=== PATIENT | female | born 1965 | race Caucasian/White ===

== ENCOUNTER → 2023-06-03 09:03 | Outpatient (BNVA) | payer OTHER, SELFPAY | PROVIDERS: PCP Internal Medicine; Visit Provider Physician Assistant Surgical ==

== ENCOUNTER 2023-07-08 08:51 | Outpatient (AMB) | payer OTHER, SELFPAY ==
--- NOTE | 2023-07-07 20:06 | A.OFFVIS_ITS ---
Intake VS Expanded 07/07/23 20:12 Height 4 ft 8 in Weight 217 lb BMI 48.6 Body Fat % 50.2 Body Fat Mass 108 Visceral Fat Rating 19 Body Water % 76.8 Basal Metabolic Rate/Score 1,548 Intake Visit Reasons: [employer] BMI 48.7 SWL Allergies No Known Allergies Allergy (Verified 07/08/23 10:56) Medication List - Last Reconciled 07/08/23 by Francisco Espinoza MD No Known Home Meds HPI [employer] BMI 48.7 SWL HPI Details Start time: 10.48am, End time: 11.33am. An additional 15 minutes were used at a different part of the day to complete this note and review patient's records. ?I spent 45 minutes speaking with the patient on the phone plus an additional 15 minutes reviewing and updating records for a total of 60 minutes HPI Comments History of Present Illness Details Previous weight loss efforts: Weight Watchers Wakes up: 6am, sleeps: 9pm Breakfast: skips Lunch: 12-2pm (salad, glass grinder, fast food) Dinner: often skips but usually at 6pm (pasta with sauce, shrimp, steak with potatoes Snacks: 9-10am (crackers), toast instead of dinner Exercise: none Fluids: Coffee: 2/wk (1 cup), tea: occasionally, soda: 1-2/wk (regular coke), juice: 1/wk, ETOH: 4-5/week ([facility] drink with alcohol x3/wk PFSH Medical History (Updated 07/08/23 @ 11:00 by Francisco Espinoza MD) Hypertension DJD (degenerative joint disease) Morbid obesity Surgical History (Updated 07/08/23 @ 11:00 by Francisco Espinoza MD) History of delivery History of partial hysterectomy Hx laparoscopic cholecystectomy Family History (Updated 06/03/23 @ 10:38 by Radha Bueno CMA) Sister Lung cancer Brother Colon cancer Liver cancer Lung cancer Maternal Grandfather FH: prostate cancer Maternal Aunt Breast cancer Physical Exam Vital Signs: BMI result Body Mass Index 48.6 Assessment & Plan Assessment & Plan (1) Morbid obesity: Code(s): E66.01 - Morbid (severe) obesity due to excess calories Plan: 1.? Plan for lap sleeve gastrectomy. If diaphragmatic or ventral hernias are present at time of surgery, these will be repaired laparoscopically as well. Risks and complications were discussed in detail including possible conversion to an open procedure, anastomotic leak, bleeding requiring transfusion, small bowel obstruction, , DVT and pulmonary embolism, cardiac, or pulmonary complications, as shelter complications such as anastomotic ulcer, insufficient weight loss and vitamin deficiencies. I emphasized the importance of close follow-up, adherence to instructions and good communication. 2. Nutritional counseling. Start with 2 Isopure INFUSIONS protein (buy at [employer]) shakes (HALF scoop EACH in 8oz water) at 7am-9am and 10am-12pm, 2 protein bars (Zone Perfect protein bars, buy at [employer]) at 1pm-3pm and 4pm-6pm, dinner at 7pm (8 forks of protein and 8 forks of salad/vegetables). So you do 2 protein shakes, 2 protein bars and one meal per day. Meal to include lean meat (beef, fish, pork, turkey, chicken), or ge[place]ian yogurt, or egg whites, or beans with a salad with olive oil and fruits (berries, pears, apples, kiwi). Avoid salt, breads, potatoes, rice, pasta, desserts. 3. Each shake would be drunk slowly, like coffee in a period of 2 hours. 4. Cut each bar in 4 pieces and eat each piece in 30min ?to make each bar last 2 hours. 5. I emphasized the importance of measuring accurately the food portion and measure it when serving the food in plate 6. The meal portions include 8 full-size forks of meat and 8 full-size forks of salad. You always eat the meat portion but you can replace up to 4 forks for salad/vegetables with rice, potatoes or pasta, or a fruit ?if you like. The less you do it the better weight loss will be. 7. One full-size fork is what it can be scooped on the fork without falling aside and not what can be bit with the fork. Use regular forks like those you find in a typical restaurant. 8.? Please send me weight measurements as soon as possible and then once a week. Always include your diet and exercise plan. 9. Start walking outside daily, tracking calories with a goal of 300 calories per day, daily. Goal is to burn 2000 calories per week on exercise, which means either 300 calories daily, or 400 calories 5 days per week, or 500 calories 4 days per week, or 650 calories 3 days per week. 10. Alternatively purchase a stationary bike, elliptical or treadmill at home that can track calories. Let me know if you do so I can give you an exercise plan. 11.?Goal is to lose at least 1.5-2lbs per week 12. Goal to lose 10% of your weight before surgery, which is about 21lbs. Ultimate weight goal: 196lbs before surgery 13. Please follow the diet plan exactly without any change. If you don't like something about the plan or you feel hungry you need to communicate with me so I can help you revise the plan. You should not change the plan yourself. (2) Hypertension: Code(s): I10 - Essential (primary) hypertension Orders: Orders Insulin 07/07/23 E6. - Morbid (severe) obesity due to excess calories Lipid Panel 07/07/23 E66. - Morbid (severe) obesity due to excess calories Complete Blood Count Auto Diff 07/07/23 E66. - Morbid (severe) obesity due to excess calories Comprehensive Met. Panel 07/07/23 E66. - Morbid (severe) obesity due to excess calories Vitamin B1 07/07/23 E66. - Morbid (severe) obesity due to excess calories Vitamin A 07/07/23 E66. - Morbid (severe) obesity due to excess calories Ferritin 07/07/23 E66. - Morbid (severe) obesity due to excess calories H Pylori Breath Test 07/07/23 E66. - Morbid (severe) obesity due to excess calories Vitamin D 25-OH Total 07/07/23 E66. - Morbid (severe) obesity due to excess calories XR chest 2V 07/07/23 E66. - Morbid (severe) obesity due to excess calories ECG 12 lead EKG 07/07/23 E66. - Morbid (severe) obesity due to excess calories IRON PROFILE 07/07/23 E66. - Morbid (severe) obesity due to excess calories Vitamin B12 and Folate 07/07/23 E66. - Morbid (severe) obesity due to excess calories Zinc 07/07/23 E66.01 - Morbid (severe) obesity due to excess calories C Reactive Protein 07/07/23 E66.01 - Morbid (severe) obesity due to excess calories PTHI 07/07/23 E66.01 - Morbid (severe) obesity due to excess calories TSH reflex Free T4 07/07/23 E66.01 - Morbid (severe) obesity due to excess calories Hemoglobin A1c 07/07/23 E66.01 - Morbid (severe) obesity due to excess calories US abdomen comp w elastography 07/07/23 E66.01 - Morbid (severe) obesity due to excess calories FL upper GI w air 07/07/23 E66.01 - Morbid (severe) obesity due to excess calories Referrals Behavioral Health Referral E66.01 - Morbid (severe) obesity due to excess calories Nutrition/Dietitian Referral E66.01 - Morbid (severe) obesity due to excess calories Telehealth Telehealth Location of provider rendering services: practice address Location of patient: address on file Patient Identification confirmed using: Name, : Yes Telehealth method: voice only Patient verbally consented to treatment: Yes Patient verbally consented to billing insurance company: Yes Patient informed of any privacy concerns related to visit: Yes Minutes spent on Phone/Video with Pt.: 60 Coding Level of Care Code Tele New Pt Level 5 (80504) Diagnoses Morbid obesity E66.01 Hypertension I10 Time Spent (min) 60
[2023-07-07 20:12] VITALS: BMI 48.6
== END 2023-07-08 11:35 | disposition home or self-care (01) ==
LOC: HO.HBS 08:51
PROVIDERS: PCP Internal Medicine; Visit Provider Surgery
DX: E66.01 Morbid (severe) obesity due to excess calories (principal); Z68.43 Body mass index [BMI] 50.0-59.9, adult; I10 Essential (primary) hypertension
CPT/HCPCS: 99443

== ENCOUNTER → 2023-07-08 08:51 | Outpatient (BNVA) | payer OTHER, SELFPAY | PROVIDERS: PCP Internal Medicine; Visit Provider Surgery | DX: E66.01 Morbid (severe) obesity due to excess calories (principal) ==